=== PATIENT | male | born 1970 | race Caucasian/White ===

== ENCOUNTER → 2019-03-07 10:19 | Outpatient (CLI) | payer OTHER, SELFPAY ==
--- NOTE | 2019-03-07 10:23 | XR_ITS ---
XR chest 2V HISTORY: Trouble breathing, emphysema ITS.REASON: Copd ORDERING PHYSICIAN: Marina Prieto APRN PATIENT AGE: 48 years COMPARISON: None FINDINGS: The cardiomediastinal silhouette and pulmonary vascularity are within normal limits. There are no previous exams available at this institution for comparison. There is hyperlucency of the right upper chest with increased density in the right suprahilar region with fibrotic changes in the right upper lobe and right midlung. The hyperlucency may represent bullous change. The left lung is clear. No lobar consolidation or collapse. No acute bony findings. IMPRESSION: 1. Prominent right hilum. Without old exams for comparison, one cannot exclude the possibility of a hilar mass. Suggest chest CT with contrast for further evaluation unless old films are available and can be submitted for review. 2. Hyperlucency in the right apex which may be due to bullous changes with scarring in the right upper lobe.
[2019-03-07 11:00] LABS: Basophils # 0.1 K/mm3 (0-0.2); Basophils % 1.1 % (0.1-2.0); Eosinophils # 0.2 K/mm3 (0.0-0.4); Eosinophils % 3.8 % (0.1-12.0); Hematocrit 37.1 % (42.0-52.0); Hemoglobin 11.6 g/dL (14.1-18.0); Lymphocytes # 1.7 K/mm3 (0.7-4.5); Mean Corpuscular HGB Conc 31.2 g/dL (31.8-35.4); Mean Corpuscular Hemoglobin 28.9 pg (27.0-31.2); Mean Corpuscular Volume 92.8 fl (80-94); Monocytes # 0.4 K/mm3 (0.1-1.0); Monocytes % 8.4 % (1.7-9.3); Neutrophils # 2.6 K/mm3 (1.8-7.8); Neutrophils % 52.7 % (37.0-80.0); Platelet Count 171 K/mm3 (142-424); Red Cell Distribution Width 16.5 % (11.5-17.5); White Blood Count 4.9 K/mm3 (4.8-10.8)
[2019-03-07 12:34] LABS: Alanine Aminotransferase 38 U/L (12-78); Albumin Level 3.5 gm/dL (3.4-5.0); Alkaline Phosphatase 89 U/L (46-116); Anion Gap 11.2 mEq/L (5-15); Aspartate Amino Transferase 100 U/L (15-37); Bilirubin,Total 0.5 mg/dL (0.2-1.0); Blood Urea Nitrogen 10 mg/dL (7-18); Calcium 8.8 mg/dL (8.5-10.1); Carbon Dioxide 27 mmol/L (21.0-32.0); Chloride 103 mmol/L (98-107); Chol/HDL Ratio 1.9 (1-3.5); Cholesterol 219 mg/dL (140-200); Creatine Kinase 124 U/L (39-308); Creatinine,Serum 0.84 mg/dL (0.70-1.30); Estimated Glomerular Filt Rate 98 ml/min (>60); GFR (African American) 118 ML/MIN (>60); Globulin 3.4 gm/dl (1.3-3.2); Glucose 85 mg/dL (74-106); HDL Cholesterol 113 mg/dL (27-67); LDL Cholesterol 94 mg/dL (0-130); Potassium 5.2 mmoL/L (3.5-5.1); Sodium 136 mmol/L (136-145); T4 (Thyroxine) 5.1 ug/dl (4.7-13.3); Thyroid Stimulating Hormone 1.95 uIU/ml (0.358-3.740); Total Protein,Serum 6.9 gm/dL (6.4-8.2); Triglycerides 60 mg/dL (30-200); VLDL Cholesterol 12 mg/dL (0-40)
[2019-03-08 18:58] LABS: Vitamin D 25 Hydroxy 25.2 ng/mL (30.0-100.0)
== END ==
PROVIDERS: PCP Emergency Medicine; Visit Provider Nurse Practitioner Family
DX: R25.2 Cramp and spasm (principal); I10 Essential (primary) hypertension; J44.9 Chronic obstructive pulmonary disease, unspecified
CPT/HCPCS: 36415; 71046; 80053; 80061; 82550; 82652; 84436; 84443; 85025

== ENCOUNTER → 2019-03-14 11:06 | Outpatient (CLI) | payer OTHER, SELFPAY ==
[2019-03-14 11:58] LABS: Prothrombin Time 9.4 seconds (9.4-11.8)
[2019-03-14 13:42] LABS: Anion Gap 17.9 mEq/L (5-15); Blood Urea Nitrogen 14 mg/dL (7-18); Calcium 9.4 mg/dL (8.5-10.1); Carbon Dioxide 28 mmol/L (21.0-32.0); Chloride 94 mmol/L (98-107); Creatinine,Serum 1.06 mg/dL (0.70-1.30); Estimated Glomerular Filt Rate 75 ml/min (>60); Ferritin 540 ng/mL (8-388); GFR (African American) 90 ML/MIN (>60); Glucose 88 mg/dL (74-106); Potassium 5.9 mmoL/L (3.5-5.1); Sodium 134 mmol/L (136-145)
[2019-03-15 08:25] LABS: Iron 127 ug/dL (38-169); Iron Saturation 36 % (15-55); UIBC 222 ug/dL (111-343)
[2019-03-15 09:21] LABS: Hep B Core Ab, Total Positive (Negative); Hepatitis B Surface Antigen Negative (Negative)
[2019-03-15 19:28] LABS: Hep A Ab, Total Positive (Negative); Hepatitis B Surf Ab Quant 13.9 mIU/mL (Immunity>9.9); Hepatitis C Antibody <0.1 s/co ratio (0.0-0.9)
[2019-03-15 19:29] LABS: HIV Screen 4th Generation wRfx Non Reactive (Non Reactive)
[2019-03-16 11:14] LABS: HCV Genotype Charge YES
== END ==
LOC: RT 11:07 → LAB 11:43
PROVIDERS: PCP Nurse Practitioner Family; Visit Provider Nurse Practitioner Family
DX: R74.0 Nonspecific elevation of levels of transaminase and lactic acid dehydrogenase [LDH] (principal); R71.0 Precipitous drop in hematocrit; D64.89 Other specified anemias; E87.5 Hyperkalemia
CPT/HCPCS: 36415; 80048; 82728; 83540; 83550; 85610; 86703; 86704; 86706; 86708; 87340; 87380; 87522; 87902; G0432

== ENCOUNTER → 2019-03-21 11:09 | Outpatient (CLI) | payer OTHER, SELFPAY ==
--- NOTE | 2019-03-21 12:34 | CT_ITS ---
CT chest w con HISTORY: Cough, emphysema, tobacco use, smoker ITS.REASON: abnormal xray ORDERING PHYSICIAN: Marina Prieto APRN PATIENT AGE: 48 years COMPARISON: None Technique: Contrast Used:75ml Optiray 350 Axial images were obtained. Sagittal, and coronal reformatted images are also generated and reviewed. All CT scans at the facility use one or more dose reduction, viz: automated exposure control, ma/kV adjustment per patient size (including targeted exams where dose is matched to indication, i.e. head), or iterative reconstruction technique. FINDINGS: No mediastinal or hilar mass or adenopathy is evident. There was a question of a prominent hilum on the right on the radiograph. There are fibrotic changes with volume loss in the right upper lobe accounting for this abnormality of the prominent right hilum. There is some bronchial thickening in this region. There is centrilobular emphysema with hyperinflation and bullous change in the right upper lobe. No definite central obstructing lesion is evident. There are some scattered fibrotic changes. No lobar consolidation or collapse. No suspicious pulmonary nodules. There are some minimal atelectatic or fibrotic change in the inferior aspect of the lingula. No evidence of aortic aneurysm or dissection or central pulmonary embolus. Upper abdominal images are unremarkable. No acute bony findings. 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 IMPRESSION: 1. No evidence of hilar or mediastinal mass. 2. Centrilobular disease, with fibrotic changes in the right upper lobe and suprahilar region on the right and bullous change in the right upper lobe with associated bronchial thickening
[2019-03-21 14:35] VITALS: PULSE 72; PULSE 79
== END ==
PROVIDERS: PCP Nurse Practitioner Family; Visit Provider Nurse Practitioner Family
DX: R05 Cough (principal); R93.89 Abnormal findings on diagnostic imaging of other specified body structures; F17.200 Nicotine dependence, unspecified, uncomplicated; Z76.89 Persons encountering health services in other specified circumstances
CPT/HCPCS: 71260; 94060; 94618; 94640; 94726; 94729; Q9967

== ENCOUNTER → 2019-04-11 10:59 | Outpatient (CLI) | payer OTHER, SELFPAY ==
[2019-04-11 13:51] LABS: Anion Gap 15.7 mEq/L (5-15); Blood Urea Nitrogen 13 mg/dL (7-18); Calcium 9.4 mg/dL (8.5-10.1); Carbon Dioxide 26 mmol/L (21.0-32.0); Chloride 98 mmol/L (98-107); Creatinine,Serum 1.13 mg/dL (0.70-1.30); Estimated Glomerular Filt Rate 69 ml/min (>60); GFR (African American) 84 ML/MIN (>60); Glucose 89 mg/dL (74-106); Sodium 133 mmol/L (136-145)
[2019-04-11 14:15] LABS: Potassium 6.7 mmoL/L (3.5-5.1)
== END ==
PROVIDERS: PCP Nurse Practitioner Family; Visit Provider Internal Medicine Cardiovascular Disease
DX: R07.89 Other chest pain (principal); I25.118 Atherosclerotic heart disease of native coronary artery with other forms of angina pectoris; R06.09 Other forms of dyspnea; E78.5 Hyperlipidemia, unspecified; F41.9 Anxiety disorder, unspecified; I10 Essential (primary) hypertension; I25.2 Old myocardial infarction; J44.9 Chronic obstructive pulmonary disease, unspecified; F17.200 Nicotine dependence, unspecified, uncomplicated
CPT/HCPCS: 36415; 80048

== ENCOUNTER → 2019-04-18 11:15 | Outpatient (CLI) | payer OTHER, SELFPAY ==
[2019-04-18 12:18] LABS: Anion Gap 13.5 mEq/L (5-15); Blood Urea Nitrogen 10 mg/dL (7-18); Carbon Dioxide 28 mmol/L (21.0-32.0); Chloride 104 mmol/L (98-107); Creatinine,Serum 0.95 mg/dL (0.70-1.30); Estimated Glomerular Filt Rate 85 ml/min (>60); GFR (African American) 102 ML/MIN (>60); Glucose 106 mg/dL (74-106); Potassium 4.5 mmoL/L (3.5-5.1); Sodium 141 mmol/L (136-145)
== END ==
PROVIDERS: Visit Provider Nurse Practitioner Family
DX: E87.5 Hyperkalemia (principal)
CPT/HCPCS: 36415; 80048

== ENCOUNTER → 2019-05-01 12:00 | Outpatient (CLI) | payer OTHER, SELFPAY ==
--- NOTE | 2019-05-01 | CA_ITS ---
APPROVED REPORT Exam: Pharmacologic Technologist: Ramandeep Rivas, Ht: 5 ft 6 in Wt: 127 lbs BSA: 1.65 m2 HR: 82 bpm BP: 157/95 mmHg Rhythm: NSR Indications: CAD, Chest pain, Car. Stenosis Medical History Medical History: HTN, Hyperlipidemia, Smoking Medications: Metoprolol,,,,, Pravastatin,,,,, DulOXETINE,,,,, Tizanidine,,,,, Albuterol MDI,,,,, Hydroxyzine,,,,, Budesonide,,,,, Ergocalciferol,,,,, FORmoterol,,,,, Cardiac Risk Factors: FHX of CAD, Smoking, Hyperlipidemia Stress Test Details Test: LEXISCAN HR Resting HR: 78 bpm Max Heart Rate (APMHR): 172 bpm Max HR Achieved: 130 bpm Target HR (85% APMHR): 146 bpm % of APMHR: 75 Recovery HR: 94 bpm BP Resting BP: 157/95 mmHg Max BP: 181/100 mmHg Recovery BP: 180.0/109.0 mmHg ECG Resting ECG: NSR Clinical Exercise duration: 04:03 min Highest Stage Achieved: Stress ECG Conclusion Symptoms: SOA, Malaise,N/V,flushed. No chest pain. Arrhythmias: none. ST-T Changes: No significant changes. Conclusions: unremarkable Lexiscan Stress. Myoview images reported separately. Electronically signed by : Javier Gu, 05/16/2019 11:45:54
--- NOTE | 2019-05-01 12:03 | NM_ITS ---
APPROVED REPORT Meat Smoker: Lexiscedu myocardial perfusion imaging Indication for the test: Coronary artery disease, hypertension, hyperlipidemia, tobacco use, family history and chest pain. Procedure: Patient received a 0.4 mg of intravenous Lexiscan, resting heart rate was 82 bpm resting blood pressure 157/95, with Lexiscan maximum heart rate achieved was 120 bpm which is less than 85% of the maximum corrected heart rate in the blood pressure was 167/100. With Lexiscan patient complained of nausea and vomiting. Electrocardiogram: Resting electric cardiogram showed sinus rhythm, with Lexiscan there is less than 1.[address] segment depression noted from the baseline EKG. The EKG portion of the Lexiscan Myoview is nondiagnostic. Cardiac stress and resting SPECT images: Cardiac stress and resting SPECT images were obtained using technetium 99 Myoview 30.0 mCi at distress and 10.3 mCi at rest. Gated SPECT with analysis of segmental wall motion and calculation of the ejection fraction also done. Cardiac stress and resting SPECT images show uniform myocardial activity without segmental perfusion abnormality, computer derived ejection fraction is over 65% with no regional wall motion abnormality, right ventricle is normal size and contractility. Conclusion 1. The EKG portion of the Lexiscan Myoview is nondiagnostic. 2. No scintigraphic evidence of reversible ischemia seen, computer derived ejection fraction is over 65% with no regional wall motion abnormality, right ventricle is normal size and contractility. 3. Normal Lexiscan Myoview study. Electronically signed by : Cristhian Olvera, 05/03/2019 17:11:42
--- NOTE | 2019-05-01 14:03 | CA_ITS ---
APPROVED REPORT EXAM: Comprehensive 2D, Doppler, and color-flow Echocardiogram Hull Builder: Shilpa Bowers RDCS Ht: 5 ft 6 in Wt: 127lbs BSA: 1.65 BP: 134/84 mmHg Indications: Chest Pain SMOKER COPD ETOH ABUSE CAD H/O KS HTN HLP Left Ventricle Left atrium is normal size, left ventricle is normal size, there is no concentric left ventricular hypertrophy, visually estimated ejection fraction of 55% with no regional wall motion abnormality. Diastolic parameters are within normal range. Right Ventricle Right atrium and left ventricular normal size and contractility. Aortic Valve Aortic valve is grossly normal, there is no aortic stenosis aortic insufficiency. Mitral Valve Mitral valve is structurally normal, there is no mitral stenosis, there is trace mitral regurgitation Tricuspid Valve Tricuspid valve is grossly normal, there is mild tricuspid regurgitation, tricuspid regurgitation jet velocity is inadequate for cannulation of the right ventricular systolic pressure. Pulmonic Valve Pulmonic valve is structurally normal. Pericardium No significant pericardial effusion noted 2D Dimensions LVOT 2.00 cm (M/F) 1.5-2.5 M-Mode Dimensions LA Diam 2.10 cm (1.9-4.0) Ao Diam 3.80 cm (2.0-3.7) AV Cusp 2.00 cm (1.5-2.6) LV Diastology E/A Ratio 1.20 Mitral Valve MV E Max Juan. 96.70 (40-130 cm/s) MV A Velocity 82.40 (40-130 cm/s) E/A Ratio 1.20 Conclusion 1. Normal left ventricular size, preserved left ventricular systolic function, visually estimated ejection fraction of 55% with no regional wall motion abnormality, diastolic parameters are within normal range. 2. Trace mitral and tricuspid regurgitation 3. No significant pericardial effusion noted. Electronically signed by : Cristhian Olvera, 05/04/2019 13:46:21
--- NOTE | 2019-05-01 14:59 | CA_ITS ---
APPROVED REPORT Air Brake Worker: ALEX Laterality: Bilateral Study Quality: Adequate Indications: bilateral carotid bruits Risk Factors Hypertension: CAD, Smoking Doppler Spectral Velocity Analysis ECA (R) 133.00/ cm/s ECA (L) 102.00/ cm/s dICA (R) 119.00/47.90 cm/s dICA (L) 116.00/40.90 cm/s Carmen (R) 104.00/29.50 cm/s Carmen (L) 99.80/31.40 cm/s pICA (R) 75.40/18.90 cm/s pICA (L) 84.10/22.80 cm/s dCCA (R) 89.60/24.40 cm/s dCCA (L) 92.70/26.70 cm/s pCCA (R) 122.00/28.30 cm/s pCCA (L) 140.00/31.40 cm/s Vert (R) 75.40/ cm/s Vert (L) 29.90/ cm/s ICA/CCA 1.30 Subl. (L) 97.80/ cm/s ICA/CCA 1.25 Findings Duplex evaluation demonstrates stenosis of the right proximal internal carotid artery <20% with PSV <140 cm/sec, EDV <100 cm/sec, and IC/CC Ratio <4.0.Duplex evaluation demonstrates stenosis of the left proximal internal carotid artery <20% with PSV <140 cm/sec, EDV <100 cm/sec, and IC/CC Ratio <4.0. Left vertebral artery not visualized. Conclusion Duplex evaluation demonstrates stenosis of the right proximal internal carotid artery <20% with PSV <140 cm/sec, EDV <100 cm/sec, and IC/CC Ratio <4.0.Duplex evaluation demonstrates stenosis of the left proximal internal carotid artery <20% with PSV <140 cm/sec, EDV <100 cm/sec, and IC/CC Ratio <4.0. Left vertebral artery not visualized. Electronically signed by : Hood Muñoz MD 05/03/2019 08:04:22
== END ==
PROVIDERS: PCP Nurse Practitioner Family; Visit Provider Internal Medicine Cardiovascular Disease
DX: E78.5 Hyperlipidemia, unspecified (principal); F10.20 Alcohol dependence, uncomplicated; F17.200 Nicotine dependence, unspecified, uncomplicated; F41.9 Anxiety disorder, unspecified; I10 Essential (primary) hypertension; I25.118 Atherosclerotic heart disease of native coronary artery with other forms of angina pectoris
CPT/HCPCS: 78452; 93017; 93306; 93880; A9502; J2785

== ENCOUNTER → 2019-05-09 09:55 | Outpatient (CLI) | payer OTHER, SELFPAY ==
--- NOTE | 2019-05-09 09:59 | XR_ITS ---
PROCEDURE: XR MULTIPLE SPINE 6+V CLINICAL INDICATION: pain Neck pain, back pain, COMPARISON: No exams were available for comparison FINDINGS: Cervical spine: Negative Incidental carotid artery calcifications are present Thoracic spine: Mild degenerative changes midthoracic spine. No acute fracture Lumbar spine: No acute fracture or dislocation. Minimal endplate hypertrophic changes are present at L1-L2. Generalized vascular calcification IMPRESSION: Negative cervical spine, mild degenerative changes thoracic and lumbar spine Dictated by: Hood Muñoz MD 05/09/2019 16:29 Signed by: <Electronically signed by Hood Muñoz MD in [place]> 05/09/2019 16:29
== END ==
PROVIDERS: PCP Emergency Medicine; Visit Provider Nurse Practitioner Family
DX: M54.2 Cervicalgia (principal); M54.5 Low back pain; M54.6 Pain in thoracic spine
CPT/HCPCS: 72084

== ENCOUNTER → 2019-05-22 13:54 | Outpatient (POV) | payer OTHER, SELFPAY | PROVIDERS: Visit Provider Internal Medicine | DX: Z00.00 Encounter for general adult medical examination without abnormal findings (principal) ==

== ENCOUNTER 2019-05-25 09:51 | Outpatient (RCR) | payer OTHER, SELFPAY ==
--- NOTE | 2019-05-25 10:31 | HMH.PTOPEV ---
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 Pt reports recent Xrays have revealed DDD in the mid and low back, and reports very little radicular s/s or referred pain, mostly all localized in low back and between sh blades. Chief Complaint Pain,Stiff Symptom Type Ache,Sharp,Dull Symptoms Relieved By Rest/Positioning Symptoms Aggravated By Physical Activity,Lifting Prior Functional Limitations Lifting,Housework,Bending/ Stooping Current Functional Limitations Lifting,Housework,Bending/ Stooping Symptom Description Constant but Variable Level of pain today (0-10) 5 Pain scale - at its best (0-10) 4 Pain scale - at its worst (0-10) 8 Lumbopelvic Eval Posture Thoracic Spine Posture Standing Position Flattened Lumbar Spine Posture Standing Position Flattened Assistive device Assistive Devices None / NA Gait Observation General Gait Pattern Observation Antalgic Gait Palapation tenderness bilateral thoracic spinal tenderness Yes: 3/4 lumbar spinal tenderness Yes: 3/4 paraspinal tenderness Yes: 1/4 Lumbar/Sacral Palpation Findings Tenderness Accessory Movement T-spine Vertebrae Accessory Movements Central P/A Sikes that Elicit Symptoms T10 bilateral T11 bilateral T12 bilateral L-spine Vertebrae Accessory Movements Central P/A Sikes that Elicit Symptoms L2 bilateral L3 bilateral L4 bilateral L5 bilateral S1 bilateral Range of Motion Lumbar Spine Active Flexion Range of 0-50 Motion (degrees) Lumbar Spine Active Extension Range of 0-20 Motion (degrees) Left Lumbar Spine Lateral Flexion Active 0-25 Range of Motion (degrees) Right Lumbar Spine Lateral Flexion 0-25 Active Range of Motion (degrees) Lumbar Spine ROM Limitati
== END 2019-05-25 09:55 | disposition home or self-care (01) ==
LOC: PT 09:51
PROVIDERS: Visit Provider Nurse Practitioner Family
DX: M54.9 Dorsalgia, unspecified (principal); M51.36 Other intervertebral disc degeneration, lumbar region; M51.34 Other intervertebral disc degeneration, thoracic region
CPT/HCPCS: 97163

== ENCOUNTER → 2019-07-10 14:22 | Outpatient (POV) | payer OTHER, SELFPAY | PROVIDERS: Visit Provider Internal Medicine | DX: Z00.00 Encounter for general adult medical examination without abnormal findings (principal) ==

== ENCOUNTER → 2020-01-31 13:11 | Outpatient (CLI) | payer MEDICAID, SELFPAY ==
--- NOTE | 2020-01-31 13:12 | MR_ITS ---
PROCEDURE: MR HEAD/BRAIN WO CON CLINICAL INDICATION: seizure Seizure disorder COMPARISON: No exams were available for comparison TECHNIQUE: Routine multiplanar multi echo sequences are performed without gadolinium enhancement. FINDINGS: No midline shift, mass effect, intracranial hemorrhage, or hydrocephalus. The cerebellopontine angles, cerebellum, and brainstem are unremarkable. No evidence of acute infarction. There are scattered subcortical and periventricular T2 white matter hyperintensities. The hippocampal gyri are unremarkable in the temporal horns are symmetric. There is some mild generalized brain volume loss for patient's stated age. No mastoid effusion or sinus air-fluid level. IMPRESSION: 1. No acute intracranial findings. 2. There are few punctate scattered periventricular and subcortical T2 white matter hyperintensities. These are nonspecific and could be seen with ischemic gliotic change from microvascular disease or migraine headache. Demyelinating process is included in the differential diagnosis but felt to be less likely due to imaging characteristics. There is mild generalized brain volume loss for patient's stated age. Dictated by: Hood Muñoz MD 02/01/2020 11:51 Electronically signed by Hood Muñoz MD in [place] 02/01/2020 11:51
== END ==
PROVIDERS: PCP Emergency Medicine; Visit Provider Emergency Medicine
DX: R56.9 Unspecified convulsions (principal)
CPT/HCPCS: 70551

== ENCOUNTER 2021-02-08 00:26 | Emergency (ER) | payer MEDICAID, SELFPAY ==
--- NOTE | 2021-02-08 00:09 | ECG_ITS ---
APPROVED REPORT Exam: Resting ECG HR:72 bpm ECG Measurements Heart Rate 72 AXES TX 160 P 59 QRSd 84 QRS 74 QT 460 T 64 QTc 503 Conclusion Normal sinus rhythm Prolonged QT Abnormal ECG Electronically signed by : Lew Whittington, 02/08/2021 07:07:42
[2021-02-08 00:26] VITALS: BP 144/90; PULSE 75; RESP 19; TEMP 36.8; O2SAT 98; BMI 20.9
--- NOTE | 2021-02-08 00:45 | CT_ITS ---
PROCEDURE INFORMATION: Exam: CT Head Without Contrast Exam date and time: 02/08/2021 12:45 AM Age: 50 years old Clinical indication: Other: Seizure; Additional info: Seizure with n/v TECHNIQUE: Imaging protocol: Computed tomography of the head without contrast. Radiation optimization: All CT scans at this facility use at least one of these dose optimization techniques: automated exposure control; mA and/or kV adjustment per patient size (includes targeted exams where dose is matched to clinical indication); or iterative reconstruction. COMPARISON: MR HEAD/BRAIN WO CON 01/31/2020 1:20 PM FINDINGS: Brain: There is diffuse cerebral and cerebellar volume loss with prominence of the ventricles, sulci and cisterns. There are mild patchy periventricular white matter hypodensities consistent with remote microvascular disease. No acute ischemia is identified, although, CT is relatively insensitive within the 1st 24 hours. There is no intracranial hemorrhage, abnormal extra-axial fluid, hydrocephalus, mass, mass effect or midline shift. Cerebral ventricles: No intraventricular hemorrhage or mass. Bones/joints: Osseous structures are intact. No osteolytic or blastic bone lesions appreciated. Paranasal sinuses: Visualized paranasal sinuses are clear. Mastoid air cells: Visualized mastoid air cells are well aerated and clear. Orbital cavity: The globes appear unremarkable and there is no retro-orbital abnormality. Vasculature: There are atherosclerotic calcifications within the intracranial circulation. Soft tissues: No focal scalp swelling or hematoma. IMPRESSION: 1. No acute intracranial process. 2. Chronic findings as detailed above.
--- NOTE | 2021-02-08 00:48 | HMH.EDSEIZ ---
ED Disposition Clinical Impression: Epileptic seizure Qualifiers: Epilepsy type: unspecified Intractability: not intractable Status epilepticus: without status epilepticus Qualified Code(s): G40.909 - Epilepsy, unspecified, not intractable, without status epilepticus Disposition: Home, Self-Care Condition on Discharge: Good Instructions: DI for Seizure Disorder -- Adult Additional Instructions: please see pcp for follow up Referrals: Provider,Kevin, [Primary Care Provider] - Roseanne Watson MD [Staff Physician] - - Critical Care Critical Care Time: No Attestation: On 02/08/21, the high probability of a clinically significant, sudden or life threatening deterioration of the following system(s) required my full and direct attention, intervention and personal management. The time I documented below is in addition to time spent performing reported procedures but includes the following listed in this critical care notation. Medical Decision Making - Medical Records Medical records reviewed: Yes: I reviewed the patient's medical records. - [place] Inquiry Pt receiving controlled substance: No Vital Signs: 02/08/21 00:26 02/08/21 01:00 02/08/21 01:30 Temperature 98.2 F Temperature Source Oral Pulse Rate 75 81 Pulse Rate [Right] 75 Respiratory Rate 19 21 18 Blood Pressure 159/92 H 151/92 H Blood Pressure [Right Arm] 144/90 H Blood Pressure Mean [Right Arm] 108 Blood Pressure Source [Right Arm] Automatic Cuff 02 Sat by Pulse Oximetry 98 100 100 Oxygen Delivery Method Room Air 02/08/21 02:00 02/08/21 02:30 Temperature Temperature Source Pulse Rate 72 78 Pulse Rate [Right] Respiratory Rate 20 17 Blood Pressure 152/87 H 138/84 Blood Pressure [Right Arm] Blood Pressure Mean [Right Arm] Blood Pressure Source [Right Arm] 02 Sat by Pulse Oximetry 97 96 Oxygen Delivery Method - Lab Data Lab results reviewed: Yes: I reviewed the patient's lab results. Lab Results 02/08/21 00:40: WBC 3.7 L, RBC 3.64 L, Hgb 11.4 L, Hct 33.7 L, MCV 92.6, MCH 31.3 H, MCHC 33.8, RDW 17.1, Plt Count 89 L, MPV 8.7, Neut % (Auto) 74.0, Lymph % (Auto) 17.0, [place] % (Auto) 8.0, Eos % (Auto) 0.2, Baso % (Auto) 0.7, Neut # (Auto) 2.8, Lymph # (Auto) 0.6 L, [place] # (Auto) 0.3, Eos # (Auto) 0.0, Baso # (Auto) 0.0 02/08/21 00:40: Sodium 135 L, Potassium 3.8, Chloride 98, Carbon Dioxide 22, Anion Gap 18.8 H, BUN 19, Creatinine 0.70, Estimated Creat Clear 105, Estimated GFR 119, Est GFR ( Amer) 144, Glucose 242 H, Calcium 8.9, Total Bilirubin 0.9, AST 88 H, ALT 37, Alkaline Phosphatase 149 H, C-Reactive Protein 7.0 H, Total Protein 7.2, Albumin 4.6, Globulin 2.6, Albumin/Globulin Ratio 1.8 02/08/21 00:40: Plasma/Serum Alcohol < 10 02/08/21 00:40: ESR 39 H 02/08/21 00:40: Procalcitonin 0.136 02/08/21 00:40: Salicylates < 1.0 L, Acetaminophen < 10 L 02/08/21 01:01: Chlamy pneumoniae PCR Not detected, Adenovirus (PCR) Not detected, B. pertussis DNA (PCR) Not detected, Coronavirus OC43 (PCR) Not detected, Coronavirus HKU1 (PCR) Not detected, Coronavirus 229E (PCR) Not detected, SARS-CoV-2 (PCR) Not detected, Coronavirus NL63 (PCR) Not detected, Human Metapneumovir PCR Not detected, Influenza A (H1) PCR Not detected, Influ A (H1N1/09) PCR Not detected, Influenza A (H3) PCR Not detected, Influenza Type A (PCR) Not detected, Influenza Type B (PCR) Not detected, M. pneumoniae (PCR) Not detected, Parainfluenza 1 (PCR) Not detected, Parainfluenza 2 (PCR) Not detected, Parainfluenza 3 (PCR) Not detected, Parainfluenza 4 (PCR) Not detected, RSV (PCR) Not detected, Entero/Rhino (PCR) Not detected 02/08/21 01:34: Urine Color Yellow, Urine Appearance Clear, Urine pH 8.0, Ur Specific [place] 1.020, Urine Protein Trace, Urine Glucose (UA) 2+, Urine Ketones 1+, Urine Blood Negative, Urine Nitrate Negative, Urine Bilirubin Negative, Urine Urobilinogen 0.2, Ur Leukocyte Esterase Negative, Urine RBC None, Urine WBC 5-10, Ur Squamous Epith Ce
[2021-02-08 01:00] VITALS: BP 159/92; PULSE 75; RESP 21; O2SAT 100
[2021-02-08 01:04] LABS: Basophils % 0.7 % (0.1-2.0); Eosinophils % 0.2 % (0.1-12.0); Hematocrit 33.7 % (42.0-52.0); Hemoglobin 11.4 g/dL (14.1-18.0); Lymphocytes # 0.6 K/mm3 (0.7-4.5); Mean Corpuscular HGB Conc 33.8 g/dL (31.8-35.4); Mean Corpuscular Hemoglobin 31.3 pg (27.0-31.2); Mean Corpuscular Volume 92.6 fl (80-94); Mean Platelet Volume 8.7 fl (7.4-10.4); Monocytes # 0.3 K/mm3 (0.1-1.0); Neutrophils # 2.8 K/mm3 (1.8-7.8); Platelet Count 89 K/mm3 (142-424); Red Blood Count 3.64 M/mm3 (4.60-6.20); Red Cell Distribution Width 17.1 % (11.5-17.5); White Blood Count 3.7 K/mm3 (4.8-10.8)
[2021-02-08 01:08] LABS: Chloride 98 mmol/L (98-107); Potassium 3.8 mmoL/L (3.5-5.1); Sodium 135 mmol/L (136-145)
[2021-02-08 01:10] LABS: Adenovirus,PCR Not Detected (NotDetected); Bordetella Pertussis Not Detected (NotDetected); Chlamydophila Pneumoniae, PCR Not Detected (NotDetected); Coronavirus 19, PCR Not Detected (NotDetected); Coronavirus 229E Not Detected (NotDetected); Coronavirus NL63 Not Detected (NotDetected); Coronavirus OC43 Not Detected (NotDetected); Coronovirus HKU1,PCR Not Detected (NotDetected); Human Metapneumovirus Not Detected (NotDetected); Influenza A, PCR Not Detected (NotDetected); Influenza AH1, 2009 Not Detected (NotDetected); Influenza AH1, PCR Not Detected (NotDetected); Influenza AH3,PCR Not Detected (NotDetected); Influenza B, PCR Not Detected (NotDetected); Mycoplasma Pneumoniae, PCR Not Detected (NotDetected); Parainfluenza 1, PCR Not Detected (NotDetected); Parainfluenza 2, PCR Not Detected (NotDetected); Parainfluenza 3, PCR Not Detected (NotDetected); Parainfluenza 4, PCR Not Detected (NotDetected); Respiratory Syncytial Virus Not Detected (NotDetected); Rhinovirus/Enterovirus Not Detected (NotDetected)
[2021-02-08 01:10] LABS: Alanine Aminotransferase 37 U/L (12-78); Aspartate Amino Transferase 88 U/L (17-59); Blood Urea Nitrogen 19 mg/dl (9-20); Creatinine Clearance Estimated 105 mL/min (50-200); Estimated Glomerular Filt Rate 119 ml/min (>60); GFR (African American) 144 ML/MIN (>60)
[2021-02-08 01:11] LABS: Albumin Level 4.6 g/dl (3.5-5.0); Albumin/Globulin Ratio 1.8 (1.1-1.8); Alkaline Phosphatase 149 U/L (38-126); Anion Gap 18.8 mEq/L (5-15); Bilirubin,Total 0.9 mg/dl (0.2-1.3); Calcium 8.9 mg/dl (8.4-10.2); Carbon Dioxide 22 mmol/L (22.0-30.0); Globulin 2.6 g/dL (1.3-3.2); Glucose 242 mg/dl (74-100); Total Protein,Serum 7.2 g/dl (6.3-8.2)
[2021-02-08 01:12] LABS: Ethyl Alcohol < 10 mg/dl (0-10)
--- NOTE | 2021-02-08 01:14 | PC.NURSE ---
pt gone to radiology
[2021-02-08 01:20] LABS: Procalcitonin 0.136 ng/mL (0.0-2.0)
--- NOTE | 2021-02-08 01:28 | PC.NURSE ---
pt back from CT, attempting to use the urinal
[2021-02-08 01:29] LABS: Erythrocyte Sedimentation Rate 39 mm/hr (0-15)
[2021-02-08 01:30] VITALS: BP 151/92; PULSE 81; RESP 18; O2SAT 100
[2021-02-08 01:33] LABS: Acetaminophen < 10 ug/ml (10-30); Salicylate < 1.0 mg/dL (2.0-20.0)
[2021-02-08 01:40] LABS: Microscopic, Urine URINE MICROSCOPIC (MICROSCOPIC)
[2021-02-08 01:42] LABS: Appearance,Urine CLEAR (Clear); Bilirubin,Urine Negative (Negative); Blood, Urine Negative (Negative); Color,Urine YELLOW (Yellow); Glucose,Urine (UA) 2+ (Negative); Ketones,Urine 1+ (Negative); Leukocyte Esterase,Urine Negative (Negative); Nitrate,Urine Negative (Negative); Protein,Urine TRACE (Negative); Urobilinogen,Urine 0.2 EU/dl (0.2)
[2021-02-08 01:52] LABS: Barbiturates Screen,Urine Negative ng/ml (<200)
[2021-02-08 01:53] LABS: Amphetamine/Metha Screen,Urine Negative ng/ml (<1000); Benzodiazepines Screen,Urine Negative ng/ml (<200)
[2021-02-08 01:54] LABS: Cannabinoid Screen,Urine Positive ng/ml (<50)
[2021-02-08 01:55] LABS: Cocaine Screen,Urine Negative ng/ml (<300); Methadone Screen,Urine Negative ng/ml (<300)
[2021-02-08 01:56] LABS: Opiate Screen,Urine Negative ng/ml (<300)
[2021-02-08 01:57] LABS: Phencyclidine Screen,Urine Negative ng/ml (<25)
[2021-02-08 02:00] VITALS: BP 152/87; PULSE 72; RESP 20; O2SAT 97
[2021-02-08 02:30] VITALS: BP 138/84; PULSE 78; RESP 17; O2SAT 96
[2021-02-08 03:07] VITALS: BP 140/81; PULSE 81; RESP 15; TEMP 36.8; O2SAT 99
--- NOTE | 2021-02-08 03:18 | PC.NURSE ---
Pt requesting to leave, would like to admit; However, pt declined to stay. AMA form signed, pt's brother present to take him home.
== END 2021-02-08 03:16 | disposition home or self-care (01) ==
PROVIDERS: Emergency Provider Emergency Medicine
DX: G40.909 Epilepsy, unspecified, not intractable, without status epilepticus (principal); F12.10 Cannabis abuse, uncomplicated; J44.9 Chronic obstructive pulmonary disease, unspecified; I25.10 Atherosclerotic heart disease of native coronary artery without angina pectoris; I10 Essential (primary) hypertension; I25.2 Old myocardial infarction; E78.5 Hyperlipidemia, unspecified; F17.210 Nicotine dependence, cigarettes, uncomplicated
CPT/HCPCS: 70450; 80053; 80305; 80329; 81001; 84145; 85025; 85651; 86140; 87581; 87633; 87798; 93005; 96365; 99284; J2405